=== PATIENT | female | born 1995 | race Two or more races ===

== ENCOUNTER 2016-11-23 20:39 | Emergency (ER) | payer OTHER ==
[~2016-11-23] VITALS: Ht 157.5 cm; Wt 43.5 kg
[2016-11-23 20:45] VITALS: BP 132/82
--- NOTE | 2016-11-23 21:13 | Emergency Room Report ---
History of Present Illness General Chief Complaint: Behavioral Complaint Source: Patient Present Illness HPI Is a 21-year-old female brought in by EMS for acting bizarrely. She denies any suicidal thought homicidal thought. She was in the parking lot of a nearby business and someone called 911. She denies alcohol. admits to drug use. She felt better. [place] little anxious but denies any other complaint. Allergies: Coded Allergies: No Known Allergies (Unverified , 11/23/16) Patient History Past Medical History: see triage record, old chart reviewed, psych hx Past Surgical History: other Pertinent Family History: none Social History: Reports: smoking Last Menstrual Period: unk Now: No Immunizations: other Reviewed Nursing Documentation: PMH: Agreed, PSxH: Agreed Review of Systems Eye: Denies: blurred vision, eye pain ENT: Denies: ear pain, nose congestion, throat swelling Respiratory: Denies: cough, shortness of breath Cardiovascular: Denies: chest pain, palpitations Gastrointestinal: Denies: abdominal pain, diarrhea, nausea, vomiting Musculoskeletal: Denies: back pain, joint pain Skin: Denies: rash Neurological: Denies: headache, numbness Endocrine: Denies: increased thirst, increased urine Hematologic/Lymphatic: Denies: easy bruising All Other Systems: negative except mentioned in HPI Physical Exam Vital Signs Date Time Temp Pulse Resp B/P Pulse Ox O2 Delivery O2 Flow Rate FiO2 11/23/16 20:27 98.4 94 16 132/82 98 Room Air vitals normal Sp02 EP Interpretation: reviewed, normal General Appearance: well appearing, no apparent distress, alert Head: normocephalic, atraumatic Eyes: bilateral eye EOMI, bilateral eye PERRL ENT: hearing grossly normal, normal pharynx Neck: full range of motion, supple, no meningismus Respiratory: chest non-tender, lungs clear, normal breath sounds Cardiovascular #1: regular rate, rhythm, no murmur Gastrointestinal: normal bowel sounds, non tender, no mass, no organomegaly, no bruit, non-distended Musculoskeletal: back normal, gait/station normal, normal range of motion Neurologic: alert, oriented x3 Psychiatric: no suicidal/homicidal ideation Skin: warm/dry Medical Decision Making Diagnostic Impression: Primary Impression: Agitation Additional Impression: Drug abuse ER Course Patient with agitation and possibly drug induced psychosis. She is stable. Calm here. No suicidal thought homicidal thought. No criteria for 5150. This patient is a chronic risk of self injury due to poor impulse control, limited coping skills, and judgment intermittently impaired by intoxication. I believe that the available clinical evidence to suggest that these characteristics derived primarily from personality disorder and are likely very stable over time. Hospitalization would likely attenuate risk of self-harm only during long term period, without lasting risk reduction. Serious self-harm , while possible, would likely be inadvertent, and because of impulsivity, and foreseeable. For these reasons, I do not believe hospitalization would provide meaningful reduction in risk of self-harm. Last Vital Signs Date Time Temp Pulse Resp B/P Pulse Ox O2 Delivery O2 Flow Rate FiO2 11/23/16 20:27 98.4 94 16 132/82 98 Room Air Status: improved Disposition: HOME, SELF-CARE Condition: Stable BALTAZAR DELEON M.D. Nov 23, 2016 21:13
[2016-11-23] MEDS ORDERED: LORazepam 1mg tab ORAL ONE (22:30)
[2016-11-23 22:45] VITALS: BP 125/74
[2016-11-23 22:55] LABS: BASOPHILS % (AUTO) 1.3 % (0.0-2.0); EOSINOPHILS % (AUTO) 0.2 % (0.0-3.0); LYMPHOCYTES % (AUTO) 9.8 % (20.0-45.0); MEAN CORPUSCULAR HEMOGLOBIN 31.3 PG (27.0-31.0); MEAN CORPUSCULAR HGB CONC 32.8 G/DL (32.0-36.0); MEAN CORPUSCULAR VOLUME 95 FL (80-99); MEAN PLATELET VOLUME 6.4 FL (6.5-10.1); MONOCYTES % (AUTO) 4.4 % (1.0-10.0); NEUTROPHILS % (AUTO) 84.3 % (45.0-75.0); PLATELET COUNT 303 K/UL (150-450); RED BLOOD COUNT 4.34 M/UL (4.20-5.40); RED CELL DISTRIBUTION WIDTH 11.4 % (11.6-14.8); WHITE BLOOD COUNT 17.5 K/UL (4.8-10.8)
[2016-11-23 22:56] LABS: APPEARANCE,URINE SLIGHTLY CLOUDY; KETONES,URINE 4+ (NEGATIVE); LEUKOCYTE ESTERASE ,URINE 3+ (NEGATIVE); NITRITE,URINE NEGATIVE (NEGATIVE); PH,URINE 5 (4.5-8.0); PROTEIN,URINE 2+ (NEGATIVE); UROBILINOGEN,URINE 1 MG/DL (0.0-1.0)
[2016-11-23 23:02] LABS: SQUAMOUS EPITHELIAL CELL,UR FEW /LPF (NONE/OCC)
[2016-11-23 23:03] LABS: BACTERIA,URINE MODERATE /HPF; ICTOTEST NEGATIVE
[2016-11-23 23:10] LABS: ACETAMINOPHEN < 10 ug/mL (10-30); ALANINE AMINOTRANSFERASE 13 U/L (3-33); ALBUMIN/GLOBULIN RATIO 1.8 (1.0-2.7); ALCOHOL < 10 mg/dL; ANION GAP 26 (5-15); ASPARTATE AMINO TRANSFERASE 29 U/L (5-40); CALCIUM 10.1 mg/dL (8.6-10.2); CARBON DIOXIDE 19 mEQ/L (20-30); CHLORIDE 94 mEQ/L (98-107); CREATININE 0.9 mg/dL (0.5-0.9); GLOMERULAR FILTRATION RATE > 60 mL/min (>60); HEMOLYSIS 4; POTASSIUM 3.9 mEQ/L (3.4-4.9); SODIUM 139 mEQ/L (135-145); TOTAL PROTEIN 8.4 g/dL (6.6-8.7)
[2016-11-23] MEDS ORDERED: Cephalexin 500mg cap ORAL ONE (23:30)
[2016-11-23 23:41] VITALS: BP 112/63
--- NOTE | 2016-11-24 01:05 | Emergency Room Report ---
Physical Exam Vital Signs Date Time Temp Pulse Resp B/P Pulse Ox O2 Delivery O2 Flow Rate FiO2 11/23/16 20:27 98.4 94 16 132/82 98 Room Air Medical Decision Making Diagnostic Impression: Primary Impression: Agitation Additional Impressions: Psychosis Qualified Codes: F29 - Unspecified psychosis not due to a substance or known physiological condition UTI (urinary tract infection) Qualified Codes: N30.00 - Acute cystitis without hematuria Proteinuria ER Course Patient was discharged initially but I received a call from family. Patient never left the waiting room. Her family, she had a psychotic break about a year ago and up in a psychiatric hospital. She was on her medication for only a couple weeks. She was doing fine off of it. Last time this occurred she was in a lot of stress. Now she is in school in [place]. She is doing badly and fell in. She was taken to an ER few days ago. Family brought her to [place] last night. She was seen and evaluated and was discharged earlier today. She left before father can come and pick her up. She was found acting strangely and yelling in the parking lot. Police was called brought her here. They she did not give any history at this to me before. She seemed to be very paranoid. Her mom says she been talking very fast and not sleeping.. He looked under a lot of stress. Because of this, a low keep her for psychiatric evaluation by [facility]. They will come and evaluate her. She is a danger to herself and will need to be in a 72 hour psychiatric hold. Lab Results Impression labs unremarkable except for leukocytosis. Last Vital Signs Date Time Temp Pulse Resp B/P Pulse Ox O2 Delivery O2 Flow Rate FiO2 11/23/16 23:41 97.7 77 18 112/63 100 Room Air Status: improved Disposition: XFER TO PSYCH HOSP/UNIT Condition: Stable Referrals: [facility] (PCP) BALTAZAR DELEON M.D. Nov 24, 2016 01:05
[2016-11-24 01:41] VITALS: BP 113/61
[2016-11-24 03:41] VITALS: BP 115/67
[2016-11-24 05:41] VITALS: BP 118/62
[2016-11-24 07:05] VITALS: BP 107/69
== END 2016-11-24 07:10 ==
LOC: EDBD 20:39 → EMR 21:49
DX: R45.1 Restlessness and agitation (principal); F29 Unspecified psychosis not due to a substance or known physiological condition; F17.200 Nicotine dependence, unspecified, uncomplicated; N39.0 Urinary tract infection, site not specified; R80.9 Proteinuria, unspecified
CPT/HCPCS: 36415; 80053; 80300; 81003; 81025; 85025; 87086; 99285; G0480; 80329